=== PATIENT | male | born 1945 | race Caucasian/White ===

== ENCOUNTER 2017-07-13 07:35 | Day surgery (SDC) | payer OTHER, MEDICARE ==
[~2017-07-13] VITALS: Ht 180.3 cm; Wt 97.5 kg
[~2017-07-13 07:35] MED LIST: AMITRIPTYLINE H25 MG PO; AMLODIPINE BESY10 MG PO; ASPIR 8181 M1 PO; B COMPLETE1 EACH PO; CARVEDILOL25 MG PO; CENTRUM COMPLE1 EACH PO; ELIQUIS5 MG PO; FENOFIBRATE160 M1 PO; FISH OIL 1,2001 EAC4 PO; GABAPENTIN100 MG PO; GLIMEPIRIDE1 MG PO; GLUCOMETER MC; HYDRALAZINE HCL10 MG PO; LISINOPRIL40 MG PO; METFORMIN HCL500 M1 PO; METFORMIN HCL500 MG PO; NEURONTIN300 MG PO; PRADAXA150 MG PO; PRAVASTATIN SOD40 MG PO; TYLENOL EXTRA500 MG PO; VITAMIN C500 M1 PO; VITAMIN D-32000 UNI2 PO; VITAMIN E400 UNIT PO
[2017-07-13 08:08] LABS: POINT-OF-CARE METER ID UU14174212
== END 2017-07-13 09:50 | disposition home or self-care (01) ==
LOC: PAIN 07:35 → SDC 08:00 → PAIN 09:50
PROVIDERS: Anesthesiology Pain Medicine
DX: M47.26 Other spondylosis with radiculopathy, lumbar region (principal); M48.061 Spinal stenosis, lumbar region without neurogenic claudication; Z79.84 Long term (current) use of oral hypoglycemic drugs; E11.40 Type 2 diabetes mellitus with diabetic neuropathy, unspecified; E78.5 Hyperlipidemia, unspecified; I10 Essential (primary) hypertension; G47.33 Obstructive sleep apnea (adult) (pediatric); I48.0 Paroxysmal atrial fibrillation; E66.9 Obesity, unspecified; Z68.29 Body mass index [BMI] 29.0-29.9, adult; Z95.0 Presence of cardiac pacemaker; Z79.82 Long term (current) use of aspirin; Z79.01 Long term (current) use of anticoagulants; M79.604 Pain in right leg
CPT/HCPCS: 82948; 93005; J1100; J2250; J3010

== ENCOUNTER 2018-03-19 23:25 | Emergency (ER) | payer OTHER, MEDICARE ==
[~2018-03-19] VITALS: Ht 175.3 cm; Wt 98.1 kg
[2018-03-20] MEDS ORDERED: AUGMENTIN875 MG PO (01:20)
[2018-03-20 01:23] VITALS: BP 146/86
== END 2018-03-20 01:28 | disposition home or self-care (01) ==
LOC: EME 23:25
DX: S01.512A Laceration without foreign body of oral cavity, initial encounter (principal); Y33.XXXA Other specified events, undetermined intent, initial encounter; Y93.89 Activity, other specified; I48.91 Unspecified atrial fibrillation; Z79.01 Long term (current) use of anticoagulants; Z91.041 Radiographic dye allergy status
CPT/HCPCS: 99281; 99284